=== PATIENT | male | born 1955 | race Caucasian/White ===

== ENCOUNTER 2018-01-15 19:03 | Emergency (ER) | payer MEDICAID ==
[2018-01-15 19:18] VITALS: BMI 28.8
[2018-01-15] MEDS ORDERED: Sodium Chloride 0.9% 1,000 ML IV STA (20:10)
[2018-01-15] MEDS ORDERED: Albuterol-Ipratrop 3 mg / 0.5 (3 ml) UD IH STA (20:10)
--- NOTE | 2018-01-15 20:13 | ED PDOC ---
Arrival/HPI - General Chief Complaint: Cough, Cold, Congestion Time Seen by Provider: 01/15/18 19:16 Historian: Patient, Family - History of Present Illness Narrative History of Present Illness (Text): you were treated in the ED today for hx of nasal congestion and cough for 1 week and was seen by primary care physician but no improvement after tylenol and anti-cough medication and thus came to ED but otherwise without any nausea/ vomiting/headache/dizziness/difficulty breathing/chest pain/abdomen pain/ numbness/tingling/loss of limb function/pain with urination. 01/15/18 20:11 Time/Duration: 1 week Symptom Onset: Gradual Symptom Course: Unchanged, Intermittent Quality: Other (no pain) Activities at Onset: Rest Context: Sitting Past Medical History - Provider Review Nursing Documentation Reviewed: Yes - Travel History Have you recently traveled outside [place] w/in the past 3 mons?: No - Cardiac Hx Hypertension: Yes - Pulmonary Hx Respiratory Disorders: No - Neurological Hx Neurological Disorder: No - HEENT Hx HEENT Disorder: No - Renal Hx Renal Disorder: No - Endocrine/Metabolic Hx Endocrine Disorders: No - Hematological/Oncological Hx Blood Disorders: No - Integumentary Hx Dermatological Disorder: No - Musculoskeletal/Rheumatological Hx Musculoskeletal Disorders: No - Gastrointestinal Hx Gastrointestinal Disorders: No - Genitourinary/Gynecological Hx Genitourinary Disorders: No - Psychiatric Hx Psychophysiologic Disorder: No Hx Substance Use: No - Surgical History Other/Comment: "prostate surgery" - Anesthesia Hx Anesthesia: Yes Hx Anesthesia Reactions: No Hx Malignant Hyperthermia: No Family/Social History - Physician Review Nursing Documentation Reviewed: Yes Family/Social History: No Known Family HX Smoking Status: Never Smoked Hx Alcohol Use: Yes Frequency of alcohol use: Socially Hx Substance Use: No Allergies/Home Meds Allergies/Adverse Reactions: Allergies No Known Allergies Allergy (Verified 01/15/18 19:18) Review of Systems - Review of Systems Constitutional: Normal Eyes: Normal ENT: Rhinorrhea, Sinus Congestion Respiratory: Cough Cardiovascular: Normal Gastrointestinal: Normal Genitourinary Male: Normal Musculoskeletal: Normal Skin: Normal Neurological: Normal Endocrine: Normal Hemo/Lymphatic: Normal Psychiatric: Normal Physical Exam Vital Signs Reviewed: Yes Vital Signs Temp Pulse Resp BP Pulse Ox 01/15/18 22:12 98.0 F 96 H 18 157/99 H 100 Appearance: Positive for: Well-Appearing, Non-Toxic, Comfortable Pain Distress: None Mental Status: Positive for: Alert and Oriented X 3 - Systems Exam Head: Present: Atraumatic, Normocephalic Pupils: Present: PERRL Extroacular Muscles: Present: EOMI Conjunctiva: Present: Normal Ears: Present: Normal Mouth: Present: Moist Mucous Membranes Pharnyx: Present: Normal Nose (External): Present: Atraumatic Nose (Internal): Present: Boggy Neck: Present: Normal Range of Motion Respiratory/Chest: Present: Clear to Auscultation, Good Air Exchange Cardiovascular: Present: Regular Rate and Rhythm Abdomen: No: Tenderness, Distention, Normal Bowel Sounds, Peritoneal Signs, Rebound, Guarding, McBurney's Point Tender, Rovsing's Sign Present, Hernias, Feeding Tubes, Ostomy Tubes, Mass/Organomegaly, Scars, Other Back: Present: Normal Inspection Upper Extremity: Present: Normal Inspection Lower Extremity: Present: Normal Inspection Neurological: Present: GCS=15, CN II-XII Intact, Speech Normal, Motor Func Grossly Intact Skin: Present: Warm, Normal Color Psychiatric: Present: Alert, Oriented x 3, Normal Insight, Normal Concentration Medical Decision Making ED Course and Treatment: you were treated in the ED today for hx of nasal congestion and cough for 1 week and was seen by primary care physician but no improvement after tylenol and anti-cough medication and thus came to ED but otherwise without any nausea/ vomiting/headache/dizziness/difficulty breathing/chest pain/abdomen pain/ numbness/tingling/loss of limb function/pain with urination. You were otherwise breathing easily, smiling and talking with your family, good strength/sensation , walking easily, clear lungs, no abdomen tenderness, nasal congestion, no back of throat redness/white spots or swelling and able to speak in normal voice, no fever temp 98, stable heart rate 96, stable breathing rate 18, excellent oxygen level 100% room air, elevated blood pressure 157/99 which we recommend repeat in 2-3 days primary care office to determine further treatment, you have blood tests no infection count 9, stable blood level hemoglobin 15platelets 324 , stable chemistry, magnesium mildly high 2.5, heart blood test negative 0.01, heart failure test negative 47, influenza negative, radiology chest xray no acute, ECG normal sinus rhythm, intravenous fluids, prednisone, duoneb, observation done in the ED with improvement, had a long conversation about staying in the hospital further for testing/observation but you felt improved and wanted to go home, counselled to monitor symptoms and thus discharged home with family. 1. Recommend prednisone as directed for coughing relief. albuterol as directed for coughing/reactive airway relief. 2. Recommend azithromycin as directed for infecti control. 3. Recommend follow-up primary care 2-3 days to review symptoms. 4. If any worsening pain, fever, chills, nausea, vomiting, difficulty breathing, numbness, loss of limb function, pain with urination or any medical condition then return to the ED. no sign of thrombosis. 01/15/18 22:17 Reassessment Condition: Re-examined, Improved - Lab Interpretations Lab Results: 01/15/18 20:00 01/15/18 20:00 Lab Results 01/15/18 20:00: PT 12.1, INR 1.06, APTT 28.7 01/15/18 20:00: Influenza Typ A,B (EIA) Negative for flu a/b 01/15/18 20:00: Sodium 143, Potassium 3.9, Chloride 106, Carbon Dioxide 22, Anion Gap 19, BUN 12, Creatinine 0.7 L, Est GFR ( Amer) > 60, Est GFR ( Non-Af Amer) > 60, Random Glucose 127 H, Calcium 9.6, Magnesium 2.5 H, Total Bilirubin 0.2, AST 46, ALT 41, Alkaline Phosphatase 89, Lactate Dehydrogenase 554, Total Creatine Kinase 365 H, CK-MB (CK-2) 1.5, CK-MB (CK-2) % Cancelled, Troponin I 0.01, NT-Pro-B Natriuret Pep 47.1, Total Protein 7.8, Albumin 4.3, Globulin 3.5, Albumin/Globulin Ratio 1.2 01/15/18 20:00: WBC 9.9, RBC 5.06, Hgb 15.0, Hct 43.3, MCV 85.6, MCH 29.6, MCHC 34.6, RDW 13.8, Plt Count 324, MPV 9.1, Gran % 43.7 L, Lymph % (Auto) 38.4 H, [place] % (Auto) 10.7 H, Eos % (Auto) 6.6 H, Baso % (Auto) 0.6, Gran # 4.34, Lymph # (Auto) 3.8 H, [place] # (Auto) 1.1 H, Eos # (Auto) 0.7, Baso # (Auto) 0.06 I have reviewed the lab results: Yes - RAD Interpretation Radiology Orders: 01/15/18 19:40 CHEST PORTABLE [RAD] Stat - EKG Interpretation Interpreted by ED Physician: Yes (NSR) Type: 12 lead EKG - Medication Orders Current Medication Orders: Discontinued Medications Albuterol/Ipratropium (Duoneb 3 Mg/0.5 Mg (3 Ml) Ud) 3 ml IH STAT STA Stop: 01/15/18 20:11 Last Admin: 01/15/18 21:13 Dose: 3 ml Sodium Chloride (Sodium Chloride 0.9%) 1,000 mls @ 999 mls/hr IV .Q1H1M STA Stop: 01/15/18 21:10 Last Admin: 01/15/18 21:12 Dose: 999 mls/hr eMAR Start Stop Document 01/15/18 21:12 EQ (Rec: 01/15/18 21:13 EQ [id number]) Intravenous Solution Start Date 01/15/18 Start Time 21:13 Prednisone (Prednisone Tab) 60 mg PO STAT ONE Stop: 01/15/18 20:11 Last Admin: 01/15/18 21:13 Dose: 60 mg Disposition/Present on Arrival - Present on Arrival Any Indicators Present on Arrival: No History of DVT/PE: No History of Uncontrolled Diabetes: No Urinary Catheter: No History of Decub. Ulcer: No History Surgical Site Infection Following: None - Disposition Have Diagnosis and Disposition been Completed?: Yes Diagnosis: Bronchitis Disposition: HOME/ ROUTINE Disposition Time: 22:18 Patient Plan: Discharge Condition: IMPROVED Discharge Instructions (ExitCare): Acute Bronchitis, Adult (DC) Additional Instructions: you were treated in the ED today for hx of nasal congestion and cough for 1 week and was seen by primary care physician but no improvement after tylenol and anti-cough medication and thus came to ED but otherwise without any nausea/ vomiting/headache/dizziness/difficulty breathing/chest pain/abdomen pain/ numbness/tingling/loss of limb function/pain with urination. You were otherwise breathing easily, smiling and talking with your family, good strength/sensation , walking easily, clear lungs, no abdomen tenderness, nasal congestion, no back of throat redness/white spots or swelling and able to speak in normal voice, no fever temp 98, stable heart rate 96, stable breathing rate 18, excellent oxygen level 100% room air, elevated blood pressure 157/99 which we recommend repeat in 2-3 days primary care office to determine further treatment, you have blood tests no infection count 9, stable blood level hemoglobin 15platelets 324 , stable chemistry, magnesium mildly high 2.5, heart blood test negative 0.01, heart failure test negative 47, influenza negative, radiology chest xray no acute, ECG normal sinus rhythm, intravenous fluids, prednisone, duoneb, observation done in the ED with improvement, had a long conversation about staying in the hospital further for testing/observation but you felt improved and wanted to go home, counselled to monitor symptoms and thus discharged home with family. 1. Recommend prednisone as directed for coughing relief. albuterol as directed for coughing/reactive airway relief. 2. Recommend azithromycin as directed for infecti control. 3. Recommend follow-up primary care 2-3 days to review symptoms. 4. If any worsening pain, fever, chills, nausea, vomiting, difficulty breathing, numbness, loss of limb function, pain with urination or any medical condition then return to the ED. Prescriptions: Albuterol Sulfate [Proair Hfa] 0.09 mg IH Q2 PRN 5 Days #1 inh PRN Reason: coughing/reactive airway Azithromycin [Z-Virgil] 250 mg PO DAILY 5 Days #6 tab predniSONE [Prednisone] 20 mg PO DAILY 5 Days #5 tab Referrals: Mo Caldera MD [Primary Care Provider] - Follow up with primary Forms: [employer] (Hebrew)
[2018-01-15 20:35] LABS: BASO # 0.06 K/mm3 (0.0-2.0); BASO % 0.6 % (0.0-3.0); EOS # 0.7 (0.0-0.7); EOS % 6.6 % (1.5-5.0); GRAN # 4.34 (1.4-6.5); GRAN % 43.7 % (50.0-68.0); LYMPH # 3.8 (1.2-3.4); LYMPH % 38.4 % (22.0-35.0); MEAN CELL VOLUME 85.6 fl (80.0-105.0); MEAN CORPUSCULAR HEMOGLOBIN 29.6 pg (25.0-35.0); MEAN CORPUSCULAR HGB CONC 34.6 g/dl (31.0-37.0); MEAN PLATELET VOLUME 9.1 fl (7.0-11.0); MONO # 1.1 (0.1-0.6); MONO % 10.7 % (1.0-6.0); RBC 5.06 10^6/uL (3.5-6.1); RED CELL DISTRIBUTION WIDTH 13.8 % (11.5-14.5); WHITE BLOOD COUNT 9.9 10^3/ul (4.5-11.0)
[2018-01-15 20:48] LABS: ALB/GLOB RATIO 1.2 (1.1-1.8); ALBUMIN 4.3 g/dL (3.0-4.8); ALT/SGPT 41 U/L (7-56); AST/SGOT 46 U/L (17-59); BLOOD UREA NITROGEN 12 mg/dL (7-21); CALCIUM 9.6 mg/dL (8.4-10.5); GFR AFRICAN-AMERICAN > 60; GFR NON-AFRICAN AMERICAN > 60; INR 1.06 (0.93-1.08); PARTIAL THROMBOPLASTIN TIME 28.7 Seconds (25.1-36.5); PROTHROMBIN TIME 12.1 SECONDS (9.4-12.5)
[2018-01-15 21:00] LABS: B-TYPE NATRIURETIC PEPTIDE 47.1 pg/mL (0-450); TROPONIN I 0.01 ng/mL
[2018-01-15 21:06] LABS: CK-MB 1.5 ng/mL (0.0-3.6)
[2018-01-15 22:13] VITALS: RESP 18; TEMP 98; O2SAT 100
[2018-01-15] MEDS ORDERED: guaiFENesin-Codeine 100-10mg/5ml Syrup (5 ml) UD PO STA (22:44)
[2018-01-15 23:32] VITALS: BP 137/89; PULSE 97
--- NOTE | 2018-01-16 08:21 | RAD ---
HISTORY: 62 yoM, coughing COMPARISON: No prior. FINDINGS: LUNGS: The interstitial markings are slightly increased and coarsened with a few scattered peribronchial cuffing changes. Rule out sequela of reactive/inflammatory airway disease or viral illness. PLEURA: No significant pleural effusion identified, no pneumothorax apparent. CARDIOVASCULAR: Normal. 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 OTHER FINDINGS: None. IMPRESSION: The interstitial markings are slightly increased and coarsened with a few scattered peribronchial cuffing changes. Rule out sequela of reactive/inflammatory airway disease or viral illness.
--- NOTE | 2018-01-17 08:49 | CARD ---
APPROVED REPORT EKG Measurement Heart [id number] ME [id number] <Conclusion> Normal sinus rhythm with sinus arrhythmia Normal ECG
== END 2018-01-15 22:55 | disposition home or self-care (01) ==
LOC: ED 19:03
DX: J20.9 Acute bronchitis, unspecified (principal); I10 Essential (primary) hypertension
CPT/HCPCS: 71045; 80053; 82550; 82553; 83615; 83735; 83880; 84484; 85025; 85610; 85730; 87804; 93005; 99283; J7040